=== PATIENT | female | born 1950 | race Caucasian/White ===

== ENCOUNTER 2021-05-18 09:52 | Outpatient (CLI) | payer MEDICARE, SELFPAY ==
--- NOTE | 2021-05-18 12:00 | NEURO_ITS ---
Impression: # Complains of funny sensation in right foot. # Normal nerve conduction study including right lateral planter nerve. # Normal needle/EMG exam. # Problem could be related to small fiber neuropathy. # Clinical correlation recommended. Nerve Conduction Studies Anti Sensory Summary Table Stim Site NR Peak (ms) P-T Amp (?V) Site1 Site2 Delta-P (ms) Dist (cm) Jorden (m/s) Right Sup Fibular Anti Sensory (Ant Lat Mall) 14 cm 3.8 5.8 14 cm Ant Lat Mall 3.8 16.0 42 Right Sural Anti Sensory (Lat Mall) Calf 3.4 18.6 Calf Lat Mall 3.4 16.0 47 Motor Summary Table Stim Site NR Onset (ms) O-P Amp (mV) Site1 Site2 Delta-0 (ms) Dist (cm) Jorden (m/s) Right Lateral Plantar Motor (ADM) Med Mall 5.5 1.3 Right Peroneal Motor (Vastus Med) Ankle 4.3 1.1 Popit Ankle 8.4 40.0 48 Popit 12.7 0.9 Right Tibial Motor (Abd Goldman Brev) Ankle 5.0 5.2 Knee Ankle 9.0 42.0 47 Knee 14.0 3.5 F Wave Studies NR F-Lat (ms) L-R F-Lat (ms) Right Peroneal (Mrkrs) (EDB) 54.85 Right Tibial (Mrkrs) (Abd Hallucis) 55.16 EMG Side Muscle Nerve Root Ins Act Fibs Amp Dur Recrt Comment Right AntTibialis Dp Br Fibular L4-5 Nml Nml Nml Nml Nml Right Gastroc Tibial S1-2 Nml Nml Nml Nml Nml Right Fibularis Long Sup Br Fibular L5-S1 Nml Nml Nml Nml Nml Right Flex Dig Long Tibial L5-S2 Nml Nml Nml Nml Nml Right Ext Dig Brev Dp Br Fibular L5, S1 Nml Nml Nml Nml Nml Right QuadratusFem QuadFemoris L4-5, S1 Nml Nml Nml Nml Nml MTDD
== END 2021-05-18 09:53 | disposition home or self-care (01) ==
PROVIDERS: PCP Family Medicine; Visit Provider Family Medicine
DX: R20.2 Paresthesia of skin (principal)
CPT/HCPCS: 95886; 95909

== ENCOUNTER 2024-12-23 09:15 | Outpatient (CLI) | payer MEDICARE, SELFPAY ==
--- NOTE | ~2024-12-23 | US_ITS ---
EXAMINATION: US abdomen limited DATE: 12/23/2024 10:14 INDICATION: Abnormal findings of blood chemistry TECHNIQUE: Multiple grayscale and Doppler ultrasound images of the abdomen were obtained. COMPARISON: CT abdomen pelvis dated 09/23/2009 FINDINGS: The pancreatic head and body are normal in appearance. The pancreatic tail is not visualized. The vi sualized proximal to mid abdominal aorta and inferior vena cava are normal. Liver has normal echogeni city and contour, with a smooth surface. There are a couple anechoic hepatic cysts measuring up to 1. 4 cm and 1.2 cm in maximal diameters. No solid liver lesion identified. No intrahepatic biliary duct dilation suspected. Portal venous flow was seen in the hepatopetal, normal direction and has normal D oppler waveform. The gallbladder is normal in appearance. There is no cholelithiasis. The common itzel e duct measures 2 mm, which is normal. Sonographic Pena sign was reported as negative by the sonogr apher. The right kidney measures 7.8 x 2.1 cm with normal contour and echogenicity and no hydronephro sis. IMPRESSION: 1. Couple incidental hepatic cyst. Otherwise normal right upper quadrant ultrasound. Reviewed, dictated and finalized at location B. LEY CLEANER IMPRESSION: 1. Couple incidental hepatic cyst. Otherwise normal right upper quadrant ultras ound.
--- OUTSIDE RECORDS SUMMARY | 2024-12-23 09:48 | XMS_ITS | Patient Health Summary ---
Author Organization [facility] Address [address] [place] [address] Care Team Providers Care Ad Taker Name Role Phone Flash Rios MD Primary Care Provider [phone] [facility],non-owned Affiliates and Associated Physician Practices is amultiple site organization consisting of ambulatory clinics and hospital sitesin [place], [place], [place] and [place]. This disclosure is being madepursuant to the Care Everywhere program and may not contain all information available regarding this patient. Last updated 18.[facility] Allergies * Cleocin(Rash) * Fluconazole(Rash) * Amoxicillin(Rash) Medications * Be aware that medications may not be up to date on this document. Alwaysverify current medications with the patient. * buPROPion SR 12hr (WELLBUTRIN SR) 200 MG tablet Take 200 mg by mouth daily. * eszopiclone (LUNESTA) 2 MG tablet Take 2 mg by mouth nightly as needed for Insomnia. * ibuprofen (MOTRIN) 600 MG tablet(Started 10/03/2009) Take 1 Tab by mouth every 6 hours as needed for Pain. * propoxyphene napsylate-acetaminophen (DARVOCET A500) 100-500 MG tablet(Started 10/03/2009) Take 1 Tab by mouth every 4 hours as needed for Pain. * docusate sodium (COLACE) 100 MG capsule(Started 10/03/2009) Take 1 Cap by mouth daily. As needed for constipation * buPROPion SR 12hr (WELLBUTRIN-SR) 200 MG tablet(Started 10/06/2009) Take 1 Tab by mouth daily. * famotidine (PEPCID) 10 MG/ML SOLN injection(Started 10/06/2009) 2 mL by Intravenous route 2 times daily. * metoclopramide (REGLAN) 10 MG tablet(Started 10/06/2009) Take 1 Tab by mouth every 6 hours as needed for Nausea/Vomiting. Immunizations * INFLUENZA VACCINE, HIGH-DOSE, QUADR. (FLUZONE HIGH-DOSE QUADRIVALENT; 65Y+), 0.7 ML (HD-IIV4)(Given 08/29/2020, 10/30/2017) Social History Tobacco Use Types Packs/Day Years Used Date Smoking Tobacco: Never Alcohol Use Standard Drinks/Week Comments Not Asked 0 (1 standard drink = 0.6 oz pur e alcohol) Sex and Gender Information Value Date Recorded Sex Assigned at Not on file Gender Identity Not on file Sexual Orientation Not on file Last Filed Vital Signs Vital Sign Reading Time Taken Comments Blood Pressure 148/81 10/06/2009 2:15 PM [facility] Pulse 90 10/06/2009 2:15 PM [facility] Temperature 36.6 ??C (97.9 ??F) 10/06/2009 2:15 PM CS T Respiratory Rate 16 10/06/2009 2:15 PM [facility] Oxygen Saturation 98% 10/06/2009 2:15 PM [facility] Inhaled Oxygen Concentration - - Weight 57.6 kg (127 lb) 10/05/2009 11:00 AM [facility] Height 172.7 cm (5' 8 ) 10/05/2009 11:00 AM [facility] Body Mass Index 19.31 10/05/2009 11:00 AM [facility] Procedures * PATHOLOGY/CYTOLOGY REPORT ORDER(Performed 10/06/2009) * BASIC METABOLIC PANEL (CALCIUM TOTAL)(Performed 10/04/2009) Performed for Nausea Alone * CBC W AUTO DIFFERENTIAL(Performed 10/04/2009) Performed for Nausea Alone * XR ABD OBSTR SERIES W CHEST 1VW(Performed 10/04/2009) Performed for Nausea Alone * URINALYSIS REFLEX MICROSCOPIC REFLEX CULTURE(Performed 10/03/2009) Performed for Nausea Alone * CULTURE URINE(Performed 10/03/2009) Performed for Nausea Alone * CULTURE URINE(Performed 10/03/2009) Performed for Nausea Alone * AMYLASE BLOOD(Performed 10/03/2009) Performed for Nausea Alone * LIPASE BLOOD(Performed 10/03/2009) Performed for Nausea Alone * COMPREHENSIVE METABOLIC PANEL(Performed 10/03/2009) Performed for Nausea Alone * CBC W AUTO DIFFERENTIAL(Performed 10/03/2009) Performed for Nausea Alone * CBC W/O DIFFERENTIAL(Performed 10/01/2009) Performed for Abdominal or Pelvic Swelling, Mass or Lump, Unspecified Site * FROZEN SECTION(Performed 09/30/2009) * FROZEN SECTION(Performed 09/30/2009) Performed for Abdominal or Pelvic Swelling, Mass or Lump, Unspecified Site * CBC W/O DIFFERENTIAL(Performed 09/30/2009) Performed for Abdominal or Pelvic Swelling, Mass or Lump, Unspecified Site * XR CHEST 2VW(Performed 09/29/2009) Performed for Unspecified Pre-Operative Examination * TYPE + SCREEN PANEL(Performed 09/29/2009) Performed for Unspecified Pre-Operative Examination * CANCER ANTIGEN (CA)125 BLOOD(Performed 09/29/2009) Performed for Unspecified Pre-Operative Examination * BASIC METABOLIC PANEL (CALCIUM TOTAL)(Performed 09/29/2009) Performed for Unspecified Pre-Operative Examination * URINALYSIS REFLEX TO MICROSCOPIC NO CULTURE(Performed 09/29/2009) Performed for Unspecified Pre-Operative Examination * PATHOLOGY/GENETICS HISTORICAL-ONBASE(Performed 09/28/2009) * PATHOLOGY/GENETICS HISTORICAL-ONBASE(Performed 09/28/2009) Results * PATHOLOGY/CYTOLOGY REPORT ORDER (10/06/2009 11:33 AM [facility]) Narrative Procedure Note Document, Scanned - 09/30/2009 12:00 AM [facility] Scanned Document LAB - PATHOLOGY/CYTO LOGY ORDERABLES * (ABNORMAL) CBC W AUTO DIFFERENTIAL (10/04/2009 9:10 AM [facility]) Only the most recent of2 resultswithin the time period is included. WBC 6.9(DE) 4.0 - 10.0 K/CUMM [facility] RBC 3.93 3.80 - 5.80 M/CUMM [facility] Hemoglobin 11.3(L) 12.0 - 16.0 gm/dl [facility] Hematocrit 34.2(L) 37.0 - 47.0 % [facility] MCV 87.0 80.0 - 100.0 fl [facility] MCH 28.8 26.0 - 34.0 pg [facility] MCHC 33.0 31.0 - 37.0 gm/dl [facility] Platelet Count 211 150 - 400 K/CUMM [facility] RDW 12.7 11.5 - 14.5 % [facility] Granulocytes % 86.0(H) 50 - 70 % [facility] Lymphocytes % 8.1(DL) 20 - 40 % [facility] Monocytes % 4.9 0 - 12 % [facility] Eosinophils % 0.6 0 - 5 % [facility] Basophils % 0.1 0 - 2 % [facility] Granulocytes Absolute 5.94 2.00 - 7.00 x1000/cmm [facility] Lymphocytes Absolute 0.56(L) 0.80 - 4.00 x1000/cmm [facility] Monocytes Absolute 0.34 0.00 - 1.20 x1000/cmm [facility] Eosinophils Absolute 0.04 0.00 - 0.50 x1000/cmm [facility] Basophils Absolute 0.01 0.00 - 0.20 x1000/cmm [facility] BLOOD SPECIMEN / Unknown 10/04/2009 9:10 AM [facility] 10/04/2009 9:18 AM [facility] Mabel Pagan MD LAB - HEMATOLOGY O RDERABLES [facility] [address] [place] [address] * (ABNORMAL) BASIC METABOLIC PANEL (CALCIUM TOTAL) (10/04/2009 9:10 AM [facility]) Only the most recent of2 resultswithin the time period is included. Sodium 136(L) 137 - 145 mmol/L [facility] Potassium 4.2 3.6 - 5.0 mmol/L [facility] Chloride 106 98 - 107 mmol/L [facility] BUN 12 7 - 17 mg/dl [facility] Creatinine 0.61 0.52 - 1.04 mg/dl [facility] Glucose 147(H) 65 - 105 mg/dl [facility] CO2 22 22 - 30 mmol/L [facility] Calcium 8.2(DL) 8.4 - 10.2 mg/dl [facility] eGFR by MDRD 100 88 - 128 mL/min/1.7 3m2 [facility] Comment eGFR [facility] Comment: ? The eGFR does not apply to patients who are younger than ? 18 or older than 70. BLOOD SPECIMEN / Unknown 10/04/2009 9:10 AM [facility] 10/04/2009 9:18 AM [facility] Mabel Pagan MD LAB - CHEMISTRY OR DERABLES [facility] [address] [place] [address] * XR ABD OBSTR SERIES W/PA CHEST (10/04/2009 12:38 AM [facility]) Anatomical Region Laterality Modality Abdomen Radiographic Sayra ging 10/04/2009 7:29 AM [facility] Narrative 10/04/2009 7:33 AM [facility] Chest and obstructive series HISTORY: Nausea. Recent abdominal-pelvic surgery Examination of the chest in the PA view shows the lungs to be clear. I do not see a pleural effusion, pneumothorax or cardiac enlargement. Examination of the abdomen ??in the AP supine, upright and left lateral decubitus projections fails to show free air. Multiple skin elia are visible over the lower abdomen and pelvis. The colon is mildly dilated and contains both gas and fecal material. The stomach is mildly dilated as well. The findings are nonspecific but given the history of recent surgery most likely indicating a post operative adynamic ileus. SUMMARY: CHEST: Negative Obstructive series: Dilated colon most likely an adynamic ileus. Procedure Note Ki Davey MD - 10/04/2009 Chest and obstructive series HISTORY: Nausea. Recent abdominal-pelvic surgery Examination of the chest in the PA view shows the lungs to be clear. I do not see a pleural effusion, pneumothorax or cardiac enlargement. Examination of the abdomen in the AP supine, upright and left lateral decubitus projections fails to show free air. Multiple skin elia are visible over the lower abdomen and pelvis. The colon is mildly dilated and contains both gas and fecal material. The stomach is mildly dilated as well. The findings are nonspecific but given the history of recent surgery most likely indicating a post operative adynamic ileus. SUMMARY: CHEST: Negative Obstructive series: Dilated colon most likely an adynamic ileus. Marty Horta MD DIAGNOSTIC IMAGING O RDERABLES * (ABNORMAL) URINALYSIS ROUTINE W/REFLEX TO CULTURE (10/03/2009 11:30 PM [facility]) Pathologist [facility] Source Random [facility] Color UA Yellow [facility] Character UA Hazy [facility] Glucose UA NEGATIVE NEGATIVE mg/dl [facility] Bilirubin UA SMALL NEGATIVE [facility] Ketone UA >=80 NEGATIVE mg/dl [facility] Specific [place] UA 1.025 1.003 - 1.030 [facility] Blood UA LARGE NEGATIVE [facility] pH UA 5.5 5.0 - 9.0 [facility] Protein UA NEGATIVE NEGATIVE-TR DOLORES mg/dl [facility] Urobilinogen UA 0.2 0.2 - 1.0 Eric Units/dl [facility] Nitrite UA NEGATIVE NEGATIVE [facility] Leukocyte UA NEGATIVE NEGATIVE [facility] WBC UA 10-15(H) 0 - 1 HPF [facility] RBC UA 90-120(H) 0 - 2 HPF [facility] Epithelial Cell UA 10-15 NEGATIVE HPF [facility] Bacteria UA Moderate NEGATIVE [facility] Urine Culture Reflexed to culture [facility] URINE SPECIMEN OBTAINED BY CLEAN CATCH PROCEDURE / Unknown 10/03/2009 11:30 PM [facility] 10/03/2009 11:54 PM [facility] Zeinab Quezada DO LAB - URINALYSIS ORD ERABLES Performing Organization Address City/[facility] Co de Phone Number [facility] [address] [place] [phone] * CULTURE URINE (10/03/2009 11:30 PM [facility]) Pathologist [facility] Report [facility] Comment: Final - CULTURE <10,000 colonies/ml gram positive melba URINE SPECIMEN OBTAINED BY CLEAN CATCH PROCEDURE / Unknown 10/03/2009 11:30 PM [facility] LAB - MICROBIOLOGY O RDERABLES Performing Organization Address [facility] Co de Phone Number [facility] [address] [place] [address] * (ABNORMAL) COMPREHENSIVE METABOLIC PANEL (10/03/2009 8:45 PM [facility]) Pathologist [facility] Sodium 137 137 - 145 mmol/L [facility] Potassium 4.3 3.6 - 5.0 mmol/L [facility] Chloride 99 98 - 107 mmol/L [facility] BUN 13 7 - 17 mg/dl [facility] Creatinine 0.67 0.52 - 1.04 mg/dl [facility] Glucose 99 65 - 105 mg/dl [facility] Calcium 9.1 8.4 - 10.2 mg/dl [facility] Alkaline Phosphatase 62 38 - 126 U/L [facility] AST 101(H) 8 - 39 U/L [facility] Bilirubin Total 0.4 0.2 - 1.3 mg/dl [facility] Protein Total 6.5 6.3 - 8.2 gm/dl [facility] Albumin 4.0 3.9 - 5.0 gm/dl [facility] CO2 24 22 - 30 mmol/L [facility] ALT 30 9 - 52 U/L [facility] eGFR by MDRD 90 88 - 128 mL/min/1.7 3m2 [facility] Comment eGFR [facility] Comment: ? The eGFR does not apply to patients who are younger than ? 18 or older than 70. BLOOD SPECIMEN / Unknown 10/03/2009 8:45 PM [facility] 10/03/2009 8:55 PM [facility] Damien DO LAB - CHEMISTRY ORDE [employer] Performing Organization Address City/[facility] Co de Phone Number [facility] [address] [place], [place] [phone] * LIPASE BLOOD (10/03/2009 8:45 PM [facility]) Lipase 228. 23 - 300 U/L [facility] BLOOD SPECIMEN / Unknown 10/03/2009 8:45 PM [facility] 10/03/2009 8:55 PM [facility] Zeinab D Damien DO LAB - CHEMISTRY ORDE [employer] [facility] [address] [place] [phone] * AMYLASE BLOOD (10/03/2009 8:45 PM [facility]) Amylase 65 30 - 110 U/L [facility] BLOOD SPECIMEN / Unknown 10/03/2009 8:45 PM [facility] 10/03/2009 8:55 PM [facility] Zeinab Quezada DO LAB - CHEMISTRY CRIS ALVARADO Performing Organization Address [facility] de Phone Number [facility] [address] [place] [address] * (ABNORMAL) CBC W/O DIFFERENTIAL (10/01/2009 6:15 AM [facility]) Only the most recent of2 resultswithin the time period is included. WBC 6.6(DE) 4.0 - 10.0 K/CUMM [facility] RBC 3.48(L) 3.80 - 5.80 M/CUMM [facility] Hemoglobin 10.1(DL) 12.0 - 16.0 gm/dl [facility] Hematocrit 30.1(DL) 37.0 - 47.0 % [facility] MCV 86.5 80.0 - 100.0 fl [facility] MCH 29.0 26.0 - 34.0 pg [facility] MCHC 33.6 31.0 - 37.0 gm/dl [facility] RDW 12.9 11.5 - 14.5 % [facility] Platelet Count 135(L) 150 - 400 K/CUMM [facility] BLOOD SPECIMEN / Unknown 10/01/2009 6:15 AM [facility] 10/01/2009 6:42 AM [facility] Michael Steen MD LAB - HEMATOLOGY OR DERABLES Performing Organization Address [facility] de Phone Number [facility] [address] [place] [address] * FROZEN SECTION (09/30/2009 9:40 AM [facility]) Only the most recent of2 resultswithin the time period is included. Result CASE NUMBER [id number] Comment: ORDERING PHYSICIAN ??MICHAEL STEEN SPECIMEN TYPE ?Ovary-rt ovarian mass Date ? 09/30/2009 Physician ?Diana Steen Gross Description ? The specimen is received in two containers labeled with the patient's name, Lydia Grant. The first container, received fresh for frozen section, and consists of an oval round shaped mass measuring 15.5 x 8.5 x 8.5 cm, and weighs 420 grams. ??The surface of the mass is white pink manzo smooth and glistening. The majority of the mass is firm with a cyst present in the mass. ??About 100 ml's of yellow clear fluid comes out when cut. ??The cyst measures about 6.5 cm in diameter. Cassette FSA ?? Sections of the cyst wall. Cassette FSB ?? Sections of the solid mass. Cassettes C through F ?? Extra sections of the specimen. The second container is labeled left ovary and Fallopian tube, gross and micro, and consists of one ovary and one Fallopian tube connected by connective tissue. ??The ovary measures 3.1 x 1.6 x 0.6 cm. ??The outer surface of the ovary is white pink manzo, and smooth and glistening. ??The cut surface of the ovary shows a pink red manzo, unremarkable cut surface. Cassette G ?? Reimbursement Counselor sections of the left ovary. The Fallopian tube measures 8.5 cm in length x 0.5 cm in maximum diameter. ??The surface of the Fallopian tube is white pink manzo, and smooth and glistening. Cassette H ?? Reimbursement Counselor sections of the Fallopian tube. XL soliman Microscopic Exam ? Microsections of the frozen sections FSA and FSB confirm the intraoperative diagnosis. The ovary contains a circumscribed but nonencapsulated benign sex cord stromal tumor. The tumor is characterized by variable patterns. There are areas which are cellular and consist of spindle cells that have somewhat blunt ended nuclei and pale ??eosinophilic to clear cytoplasm that are growing in fascicles. At times a storiform pattern is noted. In yet other areas, the cells are thinner with a wavy nuclear contour and the background consists of more collagenous type and edematous stroma. Calcification is not seen. Mitotic figures are exceedingly rare. There is no evidence of nuclear atypia or necrosis. Focal cystic degenerative change is present. A panel of immunohistochemical stains were performed and show focal SMA, negative Desmin, and aggregates of Inhibin positivity. 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 Sections of the left fallopian tube and ovary show no pathologic changes. GM/na NOTE ??All of the special stain(s) control slides(s) and test tissue slide(s) were judged as technically acceptable. *Comment ? CPT Code corrected to read ??[id number] GM/na Diagnosis ? FROZEN SECTION DIAGNOSIS I. ?Right ovary for frozen sections ?FSA and FSB -- ?Benign, differential stromal tumor ?vs leiomyoma ?(MM/SR) FINAL DIAGNOSIS I. ?Ovary, right, excision -- ?Benign sex cord stromal tumor, ?consistent with fibrothecoma II. ?? Left tube and ovary, excision -- ?No pathologic diagnosis GM/na Manager Activities ? na Pathologist ?Zaria Reyes M.D. [place]. ?10/04/2009 1052 <3> CPT code ? [id number] MISCELLANEOUS SAMPLES / Unknown 09/30/2009 9:40 AM [facility] 09/30/2009 9:40 AM [facility] Historical Provider LAB - PATHOLOGY/C YTOLOGY ORDERABLES * XR CHEST PA AND LATERAL (09/29/2009 10:05 AM [facility]) Anatomical Region Laterality Modality Chest Other 09/29/2009 10:0 5 AM [facility] Narrative 09/29/2009 12:54 PM [facility] CHEST- History- 289.50 PA and lateral views of the chest are obtained. The lungs are clear. I do not see a pleural effusion. The heart is of normal size. SUMMARY- Negative. ? Reading Nemesio DAVEY ??M.D. ? Releasing Nemesio DAVEY ??M.D. ? Released Date Time- 09/29/091253 ? Tana RODRIGUEZ ??Flo. ? ADM- MICHAEL STEEN ?ATT- MICHAEL STEEN P REF- MICHAEL STEEN P ?CON- PCP- ?SCP- Procedure Note Ki Davey MD - 09/29/2009 CHEST- History- 289.50 PA and lateral views of the chest are obtained. The lungs are clear. I do not see a pleural effusion. The heart is of normal size. SUMMARY- Negative. Reading Nemesio DAVEY M.D. Releasing Nemesio DAVEY M.D. Released Date Time- 09/29/091253 Tana RODRIGUEZ M.D. - MICHAEL STEEN ATT- MICHAEL STEEN REF- MICHAEL STEEN CON- PCP- SCP- Michael Steen MD DIAGNOSTIC IMAGING ORDERABLES * URINALYSIS ROUTINE AUTO (09/29/2009 9:41 AM [facility]) Source Unknown [facility] Color UA Yellow [facility] Character UA Clear [facility] Glucose UA NEGATIVE NEGATIVE mg/dl [facility] Bilirubin UA MODERATE NEGATIVE [facility] Ketone UA NEGATIVE NEGATIVE mg/dl [facility] Specific [place] UA <=1.005 1.003 - 1.030 [facility] Blood UA NEGATIVE NEGATIVE [facility] pH UA 6.5 5.0 - 9.0 [facility] Protein UA NEGATIVE NEGATIVE-TRA CE mg/dl [facility] Urobilinogen UA 0.2 0.2 - 1.0 Eric Units/dl [facility] Nitrite UA NEGATIVE NEGATIVE [facility] Leukocyte UA NEGATIVE NEGATIVE [facility] URINE / Unknown 09/29/2009 9 :41 AM [facility] Michael Steen MD LAB - URINALYSIS OR DERABLES Performing Organization Address [facility] Co de Phone Number [facility] [address] [place] [phone] * (ABNORMAL) CA 125 BLOOD (09/29/2009 9:41 AM [facility]) Pathologist [facility] [place] 125 38.9(H) <30.21 U/ml [facility] BLOOD SPECIMEN / Unknown 09/29/2009 9:41 AM [facility] Michael Steen MD LAB - CHEMISTRY ORD ERABLES Performing Organization Address [facility] Co de Phone Number [facility] [address] [place] [phone] * TYPE + SCREEN PANEL (09/29/2009 9:41 AM [facility]) ABO Rh B POS [facility] Antibody Screen NEG [facility] Comment Antibody Screen: [id number] [facility] Previous History Check Done Patient has no prior history. ??Type verification will need to be performed if units are added to this type and screen. [facility] BLOOD SPECIMEN / Unknown 09/29/2009 9:41 AM [facility] Michael Steen MD LAB - BLOOD BANK OR DERABLES Performing Organization Address City/[facility]/ZIP Co de Phone Number [facility] [address] [place] [address] * PATHOLOGY/GENETICS HISTORICAL-ONBASE (09/28/2009) Only the most recent of2 resultswithin the time period is included. 09/28/2009 Michael Steen MD LAB - CHEMISTRY ORD ERABLES [facility] Care Teams Ad Taker Relationship Specialty Start Date End Date Flash Rios MD PCP - General Family Medicine 10/30/17
--- OUTSIDE RECORDS SUMMARY | 2024-12-23 09:48 | XMS_ITS | Referral Summary ---
Author Organization [facility] Address [address] [place] [address] Care Team Providers Care Riding Double Name Role Phone Flash Rios MD Primary Care Provider [phone] Source Comments [facility] [employer],non-owned Affiliates and Associated Physician Practices is amultiple site organization consisting of ambulatory clinics and hospital sitesin [place], [place], [place] and [place]. This disclosure is being madepursuant to the Care Everywhere program and may not contain all informatio navailable regarding this patient. Last updated 18.[facility] [employer] Allergies Active Allergy Reactions Criticality Noted Date Comments Cleocin Rash 09/30/2009 Fluconazole Rash 09/30/2009 Amoxicillin Rash 09/30/2009 Medications * Be aware that medications may not be up to date on this document. Alwaysverify current medications with the patient. Medication Sig Dispensed Refills Start Date End Date Status buPROPion SR 12hr (WELLBUTRIN SR) 200 MG tablet Take 200 mg by mouth daily. Active eszopiclone (LUNESTA) 2 MG tablet Take 2 mg by mouth nightly as needed for Insomnia. Active ibuprofen (MOTRIN) 600 MG tablet Take 1 Tab by mouth every 6 hours as needed for Pain. 60 0 10/03/2009 Active propoxyphene napsylate-acetamino phen (DARVOCET A500) 100-500 MG tablet Take 1 Tab by mouth every 4 hours as needed for Pain. 30 0 10/03/2009 Active docusate sodium (COLACE) 100 MG capsule Take 1 Cap by mouth daily. As needed for constipation 60 0 10/03/2009 Active buPROPion SR 12hr (WELLBUTRIN-SR) 200 MG tablet Take 1 Tab by mouth daily. 0 0 10/06/2009 Active famotidine (PEPCID) 10 MG/ML SOLN injection 2 mL by Intravenous route 2 times daily. 0 0 10/06/2009 Active metoclopramide (REGLAN) 10 MG tablet Take 1 Tab by mouth every 6 hours as needed for Nausea/Vomiting. 0 0 10/06/2009 Active Immunizations Name Administration Dates Next Due INFLUENZA VACCINE, HIGH-DOSE , QUADR. (FLUZONE HIGH-DOSE QUADRIVALENT; 65Y+), 0.7 ML (HD-IIV4) 08/29/2020,10/30/2017 Social History Tobacco Use Types Packs/Day Years [...] Comments Blood Pressure 148/81 10/06/2009 2:15 PM MANAGER LOSS PREVENTION Pulse 90 10/06/2009 2:15 PM MANAGER LOSS PREVENTION Temperature 36.6 ??C (97.9 ??F) 10/06/2009 2:15 PM CS T Respiratory Rate 16 10/06/2009 2:15 PM MANAGER LOSS PREVENTION Oxygen Saturation 98% 10/06/2009 2:15 PM MANAGER LOSS PREVENTION Inhaled Oxygen Concentration - - Weight 57.6 kg (127 lb) 10/05/2009 11:00 AM MANAGER LOSS PREVENTION Height 172.7 cm (5' 8 ) 10/05/2009 11:00 AM MANAGER LOSS PREVENTION Body Mass Index 19.31 10/05/2009 11:00 AM MANAGER LOSS PREVENTION Plan of Treatment Not on file Advance Directives Documents on File Type Date Recorded Patient Bacteriology Research Assistant Expl anation Adv Directive/Living Will/POA 10/05/2009 11:25 AM * Full Code (Latest Code Status on File) Date Activated Date Inactivated Comments 10/05/2009 8:15 AM 10/07/2009 6:18 AM * Full Code Date Activated Date Inactivated Comments 09/30/2009 2:05 PM 10/04/2009 1:51 AM Care Teams Riding Double Relationship Specialty Start Date End Date Flash Rios MD PCP - General Family Medicine 10/30/17
--- OUTSIDE RECORDS SUMMARY | 2024-12-23 09:48 | XMS_ITS | Clinical Summary ---
Author Organization [facility] Address [address] [place] [address] Care Team Providers Care Manager Business Banking Name Role Phone Flash Rios MD Primary Care Provider [phone] Source Comments [facility] [employer],non-owned Affiliates and Associated Physician Practices is amultiple site organization consisting of ambulatory clinics and hospital sitesin [place], [place], [place] and [place]. This disclosure is being madepursuant to the Care Everywhere program and may not contain all information available regarding this patient. 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 Pulse 90 10/06/2009 2:15 PM GLASS FORMING ENGINEER Temperature 36.6 ??C (97.9 ??F) 10/06/2009 2:15 PM CS T Respiratory Rate 16 10/06/2009 2:15 PM GLASS FORMING ENGINEER Oxygen Saturation 98% 10/06/2009 2:15 PM GLASS FORMING ENGINEER Inhaled Oxygen Concentration - - Weight 57.6 kg (127 lb) 10/05/2009 11:00 AM GLASS FORMING ENGINEER Height 172.7 cm (5' 8 ) 10/05/2009 11:00 AM GLASS FORMING ENGINEER Body Mass Index 19.31 10/05/2009 11:00 AM GLASS FORMING ENGINEER Plan of Treatment Health Maintenance Due Date Last Done Comments BONE DENSITY TESTING 1950 COLOGUARD (AGES 45-75) - COL ON CA SCREENING 1949 COLON MONITORING 1949 COLONOSCOPY - COLON CA SCREENING 1949 CT COLONOGRAPHY - COLON CA SCREENING 1950 Colorectal Cancer Screening 1950 FIT - COLON CA SCREENING 1949 FLEX SIG - COLON CA SCREENING 1949 LIPID TESTING 1950 MAMMOGRAM 1950 MEDICARE AWV ? 12 MONTHS 1950 HEPATITIS C SCREENING 03/30/1967 DTAP/TDAP/TD VACCINES (1 - Tdap) 1968 PNEUMOCOCCAL VACCINE 50+ (1 of 1 - PCV) 1999 ZOSTER VACCINE (1 of 2) 1999 Respiratory Syncytial Virus (RSV) Vaccine Pt: or over 60 yrs (1 - 1-dose 75+ series) 2024 COVID-19 VACCINE (1 - 2023-2 5 season) 2024 INFLUENZA VACCINE (#1) 2024 0, 10/30/2017 DEPRESSION SCREENING 11/25/2024 HEPATITIS B VACCINE Aged Out No longe r eligible based on patient's age to complete this topic HIB VACCINE Aged Out No longer eligi ble based on patient's age to complete this topic HPV VACCINE Aged Out No longer eligi ble based on patient's age to complete this topic MENINGOCOCCAL (Group B) VACCINE Aged Out No longer eligible b ased on patient's age to complete this topic MENINGOCOCCAL VACCINE Aged Out No halie ed eligible based on patient's age to complete this topic Advance Directives Documents on File Type Date Recorded 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
== END 2024-12-23 09:16 | disposition home or self-care (01) ==
PROVIDERS: PCP Family Medicine; Visit Provider Family Medicine
DX: R79.89 Other specified abnormal findings of blood chemistry (principal); K76.89 Other specified diseases of liver
CPT/HCPCS: 76705